=== PATIENT | male | born 1975 | race Caucasian/White ===

== ENCOUNTER 2024-07-10 11:35 | Outpatient (REF) | payer MEDICAID, SELFPAY | END 2024-07-10 11:36 | disposition home or self-care (01) | LOC: HO.HOSX 11:35 | PROVIDERS: Visit Provider Orthopaedic Surgery | DX: Z13.89 Encounter for screening for other disorder (principal) ==

== ENCOUNTER 2024-07-17 11:35 | Outpatient (REF) | payer MEDICAID, SELFPAY ==
--- NOTE | ~2024-07-17 | XR_ITS ---
EXAMINATION: XR PELVIS CLINICAL INFORMATION: Pain in unspecified hip M25.559. COMPARISON: None TECHNIQUE: AP view of the pelvis. FINDINGS: Severe right hip osteoarthritis with marked joint space narrowing, degenerative sclerosis and cysts, and prominent marginal osteophytes. Moderate osteoarthritis of the left hip. No acute fracture or malalignment. XR/XR pelvis 1-2V IMPRESSION: Severe right and moderate left hip osteoarthritis. Electronically signed by: Thanh Corona MD 08/24/2024 03:34 PM [facility]
== END 2024-07-17 11:36 | disposition home or self-care (01) ==
LOC: HO.HOSX 11:35
PROVIDERS: Visit Provider Orthopaedic Surgery
DX: M25.559 Pain in unspecified hip (principal); M16.0 Bilateral primary osteoarthritis of hip
CPT/HCPCS: 72170; 99202

== ENCOUNTER 2024-07-17 12:51 | Outpatient (AMB) | payer MEDICAID, SELFPAY ==
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
[2024-07-17 13:33] VITALS: BMI 20.4
== END 2024-07-17 14:24 | disposition home or self-care (01) ==
PROVIDERS: PCP Registered Nurse; Visit Provider Orthopaedic Surgery
DX: M16.11 Unilateral primary osteoarthritis, right hip (principal)
CPT/HCPCS: 99203